=== PATIENT | male | born 1995 | race Caucasian/White ===

== ENCOUNTER 2020-03-06 11:10 | Emergency (ER) | payer SELFPAY ==
[2020-03-06 11:12] VITALS: BP 135/90; PULSE 89; RESP 17; TEMP 36.3; O2SAT 98; BMI 25.5
--- NOTE | 2020-03-06 11:25 | ED.DCSUM_ITS ---
- ER Visit Summary Date of Service: 03/06/20 Chief Complaint: Laceration History of Present Illness: The patient is a [address] Oniel Perez. He is left-hand dominant. He was sharpening his [place] and went to dry them when he cut his left index finger. He complains of a sharp, throbbing pain instead of 10 with movement 6 out of 10 at rest. Denies any paresthesias distally. He is unsure when his last tetanus shot was. Physical Examination: Vitals: Stable. Afebrile. General: Well-nourished and well-developed. Head: Normocephalic atraumatic. Neck: Supple, no lymphadenopathy. No JVD. Nontender. Cardiovascular: Regular rate and rhythm. No murmurs. Respiratory: No respiratory distress. Clear to auscultation bilaterally. Abdominal: Soft, nontender, nondistended, normal bowel sounds. No guarding, rebound, or peritoneal signs. Back: Nontender. Extremities: 3 cm laceration over the lateral palmar side of the middle and distal phalanx of his left index finger. He is able to flex the DIP joint against resistance. He has normal sensation light touch less than 2-second cap refill. Skin: Normal color, no rash. Neurologic: Alert and oriented ?3. Cranial nerves II through XII are intact. Normal strength and sensation. Psych: Normal affect. Emergency Department Course and Treatment: Patient refused pain medications. He had his tetanus updated. He had his wound anesthetized and repaired. He tolerated this well. Treatment Plan: Patient is instructed on wound care. Instructed to follow-up with Dr. Oniel Perez iii in 10 to 14 days for suture removal. Return to the emergency department for any worsening symptoms. Disposition: To home in improved and stable condition. Impression: 1. Laceration left index finger, 3 cm, repaired. Procedure note: Wound was cleansed with chlorhexidine soap. Anesthetized with 5 cc of bupivacaine as a digital block. Copiously irrigated with normal saline. Wound was explored there is no foreign material present. It was closed with 4 simple interrupted 4-0 ethilon sutures. The patient tolerated it well. This note was generated with [employer] software. It may contain incorrect words, spelling, and punctuation that were not noted in review of the chart prior to signing ED Disposition - Plan for ED Patient: Instructions: ED Laceration, Hand: All Closures Referrals: Oniel Perez III, MD [Primary Care Provider] - 10-14 Days suture removal
[2020-03-06] MEDS: Diphth,Pertuss(Acell),Tet Vac 0.5 ML Vial IM (12:37)
[2020-03-06] MEDS: Bupivacaine Mpf 0.5% 30 ML VIAL INFILT (12:38)
== END 2020-03-06 12:49 | disposition home or self-care (01) ==
LOC: ED 12:28
PROVIDERS: Emergency Provider Emergency Medicine; PCP Family Medicine
DX: S61.211A Laceration without foreign body of left index finger without damage to nail, initial encounter (principal); W26.8XXA Contact with other sharp object(s), not elsewhere classified, initial encounter; Y93.89 Activity, other specified; Y92.89 Other specified places as the place of occurrence of the external cause; Y99.8 Other external cause status; Z23 Encounter for immunization
CPT/HCPCS: 12002; 90471; 90715; 99284

== ENCOUNTER 2023-11-29 18:30 | Emergency (ER) | payer OTHER, SELFPAY ==
[2023-11-29 18:30] VITALS: BP 151/84; PULSE 108; RESP 16; TEMP 36.9; O2SAT 96; BMI 32.0
--- NOTE | 2023-11-29 19:26 | EX.ED.UPPERE ---
HPI History of Present Illness HPI Narrative: Right thumb laceration at work, Worker's Comp. 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 Occurred around 3 PM today. He is left-hand dominant. Chief Complaint: Laceration Informant: patient Occured/Mechanism Mechanism/Context: Yes injury Onset/Context/Timing Onset: Today and Hours Context: Sudden Onset Timing: Continuous Quality of Pain: Sharp Current Severity: Mild Maximum Severity: Mild Associated Symptoms Associated Symptoms: Negative for Parasthesia, Weakness or Loss of Funtion Narrative Narrative: 28-year-old male [id number] was cutting pork today work around 3 PM knife slipped and cut his right thumb palmar aspect of the thenar eminence. Unsure of his last tetanus. Tetanus Immunization: Unknown Prior similar symptoms: No Recent Illness/Hospitalization: No PFSH PFSH Medical History no medical history no medical history Home Medications ?Medication ?Instructions ?Recorded ?Last Taken ?Type NK 03/06/20 Unknown History Allergy/AdvReac Type Severity Reaction Status Date / Time No Known Allergies Allergy Verified 11/29/23 18:31 Social History Smoking Status: Never smoker ROS ROS ED ROS Narrative Denies recent illness. Constitutional Constitutional ED: Denies fever(s) Eyes Eyes: Denies blurry vision ENT ENT ED: Denies ear pain Cardiovascular Cardiovascular: Denies chest pain Respiratory/Chest Respiratory/Chest: Denies cough Gastrointestinal Gastrointestinal: Denies abdominal pain Genitourinary Genitourinary ED: Denies dysuria Musculoskeletal Musculoskeletal: Denies back pain Integumentary Denies abscess Neurologic Neurologic: Denies headache(s) Psychiatric Psychiatric: Denies anxiety Endocrine Endocrinology: Denies cold intolerance Hematologic/Lymphatic Hematologic/Lymphatic: Denies easy bleeding Allergic/Immunologic Allergic/Immunologic ED: Denies mouth swelling EXAM Physical Exam Narrative Exam Narrative: Well-appearing 28-year-old male. Vital signs stable afebrile. H EENT exam unremarkable. Lungs clear. Heart regular rate and rhythm. Abdomen soft. Right hand palm aspect right thenar eminence she has about a 2 to 3 inch laceration is Steri-Stripped. It does gape. It actively bleeds. No foreign body. No infection. He has full flexion extension to the right thumb and all digits of the right hand. Normal touch sensation. Hand is neurovascularly intact. Otherwise exam unremarkable. This will need repaired. Const Vital Signs: 11/29/23 18:30 Temperature 98.4 F Temperature Source Temporal Pulse Rate 108 H Respiratory Rate 16 Blood Pressure 151/84 H Blood Pressure Mean 106 Pulse Ox 96 Oxygen Delivery Method Room Air Positive well nourished and well developed; Negative for cachectic, contractures or unkempt General Appearance ED: well developed and NAD; Negative for unkempt, cachectic, contractures, cyanotic or diaphoretic Nutritional Appearance: Negative for cachectic HEENT Reports moist mucous membranes normocephalic and atraumatic; Negative for trauma or tenderness Eyes PERRL and EOMs intact bilaterally Neck full ROM and supple Chest Wall inspection of chest normal and palpation of chest normal Resp normal respiratory effort and clear to auscultation bilaterally Cardio regular rate, regular rhythm, S1 normal heart sound, S2 normal heart sound and no murmurs GI non-tender, non-distended and no masses Back/Spine no CVA tenderness Extremity normal to inspection and full ROM Extremity Narrative: Except 2-3 his laceration palmar aspect right hand over the thenar eminence. Along the long axis of the metacarpal. Full range of motion of the thumb. Full flexion extension. Neurovascular intact with normal touch sensation and cap refill. Mildly tender. No bony deformity. General Extremety ED: Negative for edema General Extremity: Negative for edema Neuro oriented x3, CN's II-XII intact bilaterally, moves all extremities, no focal motor deficits and no sensory deficits noted Sensorium / Orientation: alert, oriented to person, oriented to place and oriented to time; Negative for orientation impaired Motor Exam: strength 5/5 throughout Psych mental status grossly normal Appearance: Negative for unkempt Skin General Skin Exam: Negative for petechiae Lesions: no lesions Rashes: no rashes Trauma: laceration; Negative for no lacerations or abrasions MDM MDM MDM Narrative Medical decision making narrative: 28-year-old male Worker's Comp. injury right thumb laceration will need repaired. Will update his tetanus unless we can find in the computer that he had a recent 1. Area be locally anesthetized, explored, cleaned with Shur-Clens irrigated and closed using simple interrupted 4-0 Ethilon sutures. Right thumb thenar eminence laceration approximately 1-1/2 to 2 inches in length. Closed using four 4-0 Ethilon simple interrupted sutures. Proper hemostasis wound closure obtained. Patient tolerated procedure well. Was instructed on wound care suture removal in 10 to 14 days. History & Record Review Discussion w/independent historian: Patient Procedures Lacerations Right thumb, thenar eminence laceration repair:: Length: 1.5 in Depth: Sub Q Shape: Linear Prep: Shure-Clens Laceration repair: Irrigated, Lidocaine, Local, Skin sutures and Wound explored Number of Sutures/Griselda: 4 Suture Information: Ethilon, Simple and 4-0 Comment: Good hemostasis wound closure obtained. Patient tolerated procedure well. Was instructed on wound care and suture removal. Discharge Plan Triage Chief Complaint: Laceration ED Provider: Larry Morales Dx/Rx/DC Orders Prescriptions: No Action NK Primary Care Provider: Care Physician,No Primary Referrals: Care Physician,No Primary [Primary Care Provider] - Print Language: Bulgarian
[2023-11-29] MEDS: Lidocaine 1% (20 ml mdv) 20 ML Vial 10 ML INFILT (19:28)
[2023-11-29 20:32] VITALS: BP 115/71; PULSE 66; RESP 18; TEMP 37; O2SAT 100
== END 2023-11-29 20:34 | disposition home or self-care (01) ==
PROVIDERS: Emergency Provider Emergency Medicine; Visit Provider Emergency Medicine
DX: S61.011A Laceration without foreign body of right thumb without damage to nail, initial encounter (principal); W26.0XXA Contact with knife, initial encounter; Y99.0 Civilian activity done for income or pay
CPT/HCPCS: 12002; 99284